=== PATIENT | female | born 1990 | race Caucasian/White ===

== ENCOUNTER 2016-10-16 18:14 | Emergency (ER) | payer MEDICAID, OTHER ==
[2016-10-16] MEDS ORDERED: SULFAMETH/TRIMETH DS 800/160 MG TABLET PO STA (18:57)
--- NOTE | 2016-10-16 18:59 | ED Physician Documentation ---
History of Present Illness - Stated complaint Stated Complaint: RED/HOT AREA ON RT BREAST - Chief complaint Chief Complaint: Wound - History obtained from History obtained from: Patient - History of Present Illness Timing: How many days ago (3) Pain level max: 4 Pain level now: 3 Improved by: nothing Worsened by: nothing - Additonal information Additional information: Patient is a 26-year-old female who presents to the emergency department with a red warm, swollen area to the right breast for the past 2 days. States it drained spontaneously today. Review of Systems Constitutional: denies: Fever, Chills GI: denies: Vomiting : denies: Now EGA Skin: denies: Rash PD PAST MEDICAL HISTORY - Past Medical History Past Medical History: No - Past Surgical History Past Surgical History: No - Present Medications Home Medications: Ambulatory Orders Medication Instructions Recorded Confirmed Control Pills 1 tab PO DAILY 10/16/16 Sulfamethox/Trimeth 800/160 1 each PO BID #14 tablet 10/16/16 [Bactrim Ds 800/160] - Allergies Allergies/Adverse Reactions: Allergies Allergy/AdvReac Type Severity Reaction Status Date / Time acetaminophen [From Vicodin] Allergy Headache Verified 10/16/16 18:20 hydrocodone bitartrate * Allergy Headache Verified 10/16/16 18:20 [From Vicodin] sumatriptan [From Imitrex] Allergy Unknown Verified 10/16/16 18:20 sumatriptan succinate * Allergy Unknown Verified 10/16/16 18:20 [From Imitrex] - Social History Does the pt smoke?: Yes Smoking Status: Current every day smoker Does the pt drink ETOH?: No Does the pt have substance abuse?: No PD ED PE NORMAL - Vitals Vital signs reviewed: Yes - General General: Alert and oriented X 3, No acute distress - Derm Derm: Warm and dry, Other (R breast 2x2cm erythematous area with mild induration , no fluctuance. ) - Neuro Neuro: Alert and oriented X 3 Results - Vitals Vitals: Vital Signs - 24 hr 10/16/16 10/16/16 18:17 19:07 Temperature 36.9 C Heart Rate 67 79 Respiratory 18 16 Rate Blood Pressure 126/78 124/68 O2 Saturation 99 99 Oxygen O2 Source Room air PD MEDICAL DECISION MAKING - ED course Complexity details: considered differential, d/w patient ED course: Patient is a 26-year-old female who presents to the emergency department what appears to be a cellulitis of the right breast, likely was an abscess that drained spontaneously at home. Bedside ultrasound reveals no drainable abscess. Will place on antibiotics for home and follow-up closely with her doctor. Patient counseled regarding signs and symptoms for which I believe and urgent re-evaluation would be necessary. Patient with good understanding of and agreement to plan and is comfortable going home at this time This document was made in part using voice recognition software. While efforts are made to proofread this document, sound alike and grammatical errors may occur. Departure - Departure Disposition: Home, Self Care Clinical Impression: Cellulitis Qualifiers: Site of cellulitis: trunk Site of cellulitis of trunk: chest wall Qualified Code(s): L03.313 - Cellulitis of chest wall Condition: Good Instructions: ED Staph Infec Abx Tx Only Follow-Up: your,doctor in 4 days for wound check [Other] Prescriptions: Sulfamethox/Trimeth 800/160 [Bactrim Ds 800/160] 1 each PO BID #14 tablet Comments: Take all antibiotics until gone. Return if you worsen. Discharge Date/Time: 10/16/16 19:09
[2016-10-16] MEDS ORDERED: SULFAMETH/TRIMETH DS 800/160 MG TABLET PO ONE (19:03)
[2016-10-16 19:09] VITALS: BP 124/68
== END 2016-10-16 19:09 | disposition home or self-care (01) ==
LOC: ED 18:14
DX: N61.0 Mastitis without abscess (principal); F17.200 Nicotine dependence, unspecified, uncomplicated
CPT/HCPCS: 99283; A9270

== ENCOUNTER 2016-11-11 13:57 | Emergency (ER) | payer MEDICAID ==
--- NOTE | 2016-11-11 15:11 | ED Physician Documentation ---
PD HPI SKIN - Stated complaint Stated Complaint: RIGHT LEG ABSCESS - Chief complaint Chief Complaint: Wound - History obtained from History obtained from: Patient - History of Present Illness Timing - duration: Days Timing - details: Gradual onset, Still present Location: RLE Quality / character: Painful, Discolored (red), Raised, Draining Associated symptoms: No: Fever Similar symptoms before: Diagnosis (had similar staph infection breast few weeks ago, cleared with drainage and abx.) Recently seen: Not recently seen Review of Systems Constitutional: denies: Fever, Chills GI: denies: Nausea, Vomiting, Diarrhea PD PAST MEDICAL HISTORY - Past Medical History Past Medical History: Yes - Past Surgical History Past Surgical History: No - Present Medications Home Medications: Ambulatory Orders Medication Instructions Recorded Confirmed Control Pills 1 tab PO DAILY 10/16/16 11/11/16 Chlorhexidine Gluconate [Hibiclens] 10 ml TP DAILY #473 ml 11/11/16 Ibuprofen [Motrin] 600 mg PO TID #30 tab 11/11/16 Mupirocin 1 applic TP TID #15 oint...g. 11/11/16 Sulfamethox/Trimeth 800/160 1 each PO BID #14 tablet 11/11/16 [Bactrim Ds 800/160] - Allergies Allergies/Adverse Reactions: Allergies Allergy/AdvReac Type Severity Reaction Status Date / Time acetaminophen [From Vicodin] Allergy Headache Verified 10/16/16 18:20 hydrocodone bitartrate * Allergy Headache Verified 10/16/16 18:20 [From Vicodin] sumatriptan [From Imitrex] Allergy Unknown Verified 10/16/16 18:20 sumatriptan succinate * Allergy Unknown Verified 10/16/16 18:20 [From Imitrex] - Social History Does the pt smoke?: Yes Smoking Status: Current every day smoker Does the pt drink ETOH?: No Does the pt have substance abuse?: No PD ED PE NORMAL - Vitals Vital signs reviewed: Yes - General General: Alert and oriented X 3, Well developed/nourished - Neck Neck: Supple, no meningeal sign, No adenopathy - Derm Derm: Normal color, Warm and dry - Extremities Extremities: Other (right posterolateral calf with skin abscess without flucutnace, mild drainage. Bedside U/S showing no fluid collection. some surrounding redness. ) - Neuro Neuro: No motor deficit, No sensory deficit Results - Vitals Vitals: Oxygen O2 Source Room air PD MEDICAL DECISION MAKING - ED course Complexity details: reviewed old records, considered differential (has staph looking abscess lower leg; had had one recent on breast.), d/w patient Departure - Departure Disposition: 01 Home, Self Care Clinical Impression: Abscess Condition: Stable Record reviewed to determine appropriate education?: Yes Instructions: ED Staph Infec Abx Tx Only Follow-Up: [facility] [Provider Group] [facility] [Provider Group] Prescriptions: Chlorhexidine Gluconate [Hibiclens] 10 ml TP DAILY #473 ml Ibuprofen [Motrin] 600 mg PO TID #30 tab Mupirocin 1 applic TP TID #15 oint...g. Sulfamethox/Trimeth 800/160 [Bactrim Ds 800/160] 1 each PO BID #14 tablet Comments: Warm moist towels to the leg infection 2-3 times a day and apply antibiotic ointment. Also you use the antibiotic ointment small amount on the nailbeds and nostrils twice daily for the next week. Bactrim twice daily oral antibiotic for a week for the skin infection. Cleanse the whole body with chlorhexidine antiseptic wash with your showers daily for the next week or so as well. Ibuprofen 3 times a day for pain. Recheck if not improving over the next couple of days. Discharge Date/Time: 11/11/16 15:42
[2016-11-11] MEDS ORDERED: SULFAMETH/TRIMETH DS 800/160 MG TABLET PO STA (15:26)
[2016-11-11] MEDS ORDERED: IBUPROFEN 800 MG TABLET PO STA (15:26)
[2016-11-11] MEDS ORDERED: IBUPROFEN 800 MG TABLET PO ONE (15:34)
[2016-11-11] MEDS ORDERED: SULFAMETH/TRIMETH DS 800/160 MG TABLET PO ONE (15:34)
[2016-11-11 15:44] VITALS: BP 134/62
== END 2016-11-11 15:42 | disposition home or self-care (01) ==
LOC: ED 13:57
DX: L02.415 Cutaneous abscess of right lower limb (principal); F17.200 Nicotine dependence, unspecified, uncomplicated
CPT/HCPCS: 99283; A9270

== ENCOUNTER 2017-08-26 20:09 | Emergency (ER) | payer MEDICAID ==
[2017-08-26 20:14] VITALS: BP 134/80
[2017-08-26] MEDS ORDERED: NEOMYCIN/POLYMYX/HC OTIC DROPS LEFTEAR STA (20:22)
--- NOTE | 2017-08-26 20:24 | ED Physician Documentation ---
PD HPI URI - Stated complaint Stated Complaint: LT EAR PX - Chief complaint Chief Complaint: Heent - History obtained from History obtained from: Patient - History of Present Illness Timing - onset: Yesterday (Left earache since yesterday without URI symptoms or hearing deficit. No drainage. She takes ibuprofen which does help.) Review of Systems Constitutional: denies: Fever, Chills Nose: denies: Rhinorrhea / runny nose, Congestion Throat: denies: Sore throat PD PAST MEDICAL HISTORY - Past Surgical History Past Surgical History: No - Present Medications Home Medications: Ambulatory Orders Medication Instructions Recorded Confirmed Control Pills 1 tab PO DAILY 10/16/16 08/26/17 Neomycin/Polymyx/Hc Otic Drops 4 drops OT TID #1 bottle 08/26/17 [Cortisporin Ear Susp] - Allergies Allergies/Adverse Reactions: Allergies Allergy/AdvReac Type Severity Reaction Status Date / Time acetaminophen [From Vicodin] Allergy Headache Verified 08/26/17 20:15 hydrocodone bitartrate * Allergy Headache Verified 08/26/17 20:15 [From Vicodin] sumatriptan [From Imitrex] Allergy Unknown Verified 08/26/17 20:15 sumatriptan succinate * Allergy Unknown Verified 08/26/17 20:15 [From Imitrex] - Social History Does the pt smoke?: Yes Smoking Status: Current every day smoker Does the pt drink ETOH?: No Does the pt have substance abuse?: No PD ED PE NORMAL - Vitals Vital signs reviewed: Yes - General General: Alert and oriented X 3, No acute distress - HEENT HEENT: Other (TMs are normal bilaterally, she does have redness of the anterior canal on the left with tenderness there but no swelling per se. Her teeth look normal and she has no TMJ tenderness or clicking.) - Neck Neck: Supple, no meningeal sign, No bony TTP - Neuro Neuro: Alert and oriented X 3, Normal speech Results - Vitals Vitals: Vital Signs - 24 hr 08/26/17 20:12 Temperature 36.8 C Heart Rate 84 Respiratory 18 Rate Blood Pressure 134/80 H O2 Saturation 100 Oxygen O2 Source Room air PD MEDICAL DECISION MAKING - Sepsis Event Vital Signs: Vital Signs - 24 hr 08/26/17 20:12 Temperature 36.8 C Heart Rate 84 Respiratory 18 Rate Blood Pressure 134/80 H O2 Saturation 100 Oxygen O2 Source Room air Departure - Departure Disposition: Home, Self Care Clinical Impression: External otitis of left ear Qualifiers: Otitis externa type: other infective Chronicity: acute Qualified Code(s): H60.392 - Other infective otitis externa, left ear Condition: Good Record reviewed to determine appropriate education?: Yes Instructions: ED Otitis Externa Prescriptions: Neomycin/Polymyx/Hc Otic Drops [Cortisporin Ear Susp] 4 drops OT TID #1 bottle Comments: Call your doctor to arrange a follow-up appointment, make the next available appointment. In the interim, return anytime if worse or if new symptoms develop. Your blood pressure was elevated today on check into the emergency department. This does not mean that you have hypertension, it is a common phenomenon to come to the emergency department and have elevated blood pressure. I recommend that you see your primary care physician within the week to have it rechecked when you are feeling better.
== END 2017-08-26 20:28 | disposition home or self-care (01) ==
LOC: ED 20:09
DX: H60.392 Other infective otitis externa, left ear (principal)
CPT/HCPCS: 99283; A9270

== ENCOUNTER 2018-07-29 07:19 | Outpatient (CLI) | payer OTHER ==
[2018-07-29 07:45] LABS: BASOPHILS % (AUTO) 0.6 %; EOSINOPHILS # (AUTO) 0.2 10^3/uL (0.0-0.7); EOSINOPHILS % (AUTO) 2.2 %; HGB - HEMOGLOBIN 13.3 g/dL (12.0-16.0); LYMPHOCYTES % (AUTO) 29.2 %; MEAN CORPUSCULAR HEMOGLOBIN 31.2 pg (27.0-31.0); MEAN CORPUSCULAR HGB CONC 35.4 g/dL (32.0-36.0); MEAN CORPUSCULAR VOLUME 88.1 fL (81.0-99.0); MEAN PLATELET VOLUME 7.1 fL (7.9-10.8); MONOCYTES # (AUTO) 0.5 10^3/uL (0.0-1.0); MONOCYTES % (AUTO) 7.7 %; NEUTROPHILS # (AUTO) 4.1 10^3/uL (1.5-6.6); NEUTROPHILS % (AUTO) 60.3 %; PLT - PLATELET COUNT 340 10^3/uL (130-450); RED BLOOD COUNT 4.25 10^6/uL (4.20-5.40); RED CELL DISTRIBUTION WIDTH 13.3 % (12.0-15.0); WHITE BLOOD COUNT 6.9 x10^3/uL (4.8-10.8)
[2018-07-29 07:58] LABS: ALBUMIN 4.2 g/dL (3.2-5.5); ALBUMIN/GLOBULIN RATIO 1.1 (1.0-2.2); ALKALINE PHOSPHATASE 57 IU/L (42-121); ALT ALANINE AMINOTRANSFERASE 32 IU/L (10-60); AST ASPARTATE AMINOTRANSFERASE 26 IU/L (10-42); BUN - BLOOD UREA NITROGEN 15 mg/dL (6-20); CALCIUM 9.2 mg/dL (8.5-10.3); CARBON DIOXIDE - CO2 24 mmol/L (21-32); CHLORIDE 103 mmol/L (101-111); CHOL/HDL RATIO 3.2 (<4.4); CHOLESTEROL 167 mg/dL; CREATININE 0.8 mg/dL (0.4-1.0); GFR - MDRD 86 (>89); GLUCOSE 94 mg/dL (70-100); HDL CHOLESTEROL 53 mg/dL; LDL CHOLESTEROL,CALCULATED 101 mg/dL; LDL/HDL RATIO 1.9 (<4.4); SODIUM 138 mmol/L (135-145); VLDL CHOLESTEROL 13 mg/dL
[2018-07-29 08:00] LABS: HB2 TOTAL 13.8 g/dL; HEMOGLOBIN A1C 0.45 g/dL; HEMOGLOBIN A1C % 5.1 % (4.6-6.2)
== END 2018-07-29 07:20 | disposition home or self-care (01) ==
LOC: LAB 07:19
PROVIDERS: ATTEND Physician Assistant
DX: Z00.00 Encounter for general adult medical examination without abnormal findings (principal); Z83.3 Family history of diabetes mellitus
CPT/HCPCS: 36415; 80053; 80061; 83036; 83721; 84443; 85025

== ENCOUNTER 2018-08-03 09:40 | Outpatient (CLI) | payer OTHER ==
--- NOTE | 2018-08-03 13:24 | XRAY Report ---
Reason: RIGHT HAND PAIN Procedure Date: 08/03/2018 Accession Number: [id number] / [id number] Procedure: WCP - Hand 3 View RT CPT Code: FULL RESULT: EXAM: RIGHT HAND RADIOGRAPHY EXAM DATE: 08/03/2018 09:56 AM. CLINICAL HISTORY: Right hand pain. COMPARISON: None. TECHNIQUE: 3 views. FINDINGS: Bones: There is a metadiaphyseal fracture of the base of the fifth metacarpal with approximately 2 mm of foreshortening and 2 mm of volar displacement of the fragment. Joints: Normal. No subluxations. Soft Tissues: Soft tissue swelling is noted. IMPRESSION: Boxer's fracture. RADIA The call report notification system was initiated by Dr. Chuck Dent at 01:11 PM on 08/03/2018. The above call report findings were discussed with KOFI Puentes by Dr. Chuck Dent at 01:23 PM on 08/03/2018.
== END 2018-08-03 09:41 | disposition home or self-care (01) ==
LOC: DI.WCP 09:40
PROVIDERS: ATTEND Family Medicine
DX: S62.316A Displaced fracture of base of fifth metacarpal bone, right hand, initial encounter for closed fracture (principal)

== ENCOUNTER 2021-04-18 07:27 | Outpatient (CLI) | payer OTHER ==
[2021-04-18 07:39] LABS: BASOPHILS # (AUTO) 0.1 10^3/uL (0.0-0.1); BASOPHILS % (AUTO) 0.7 %; EOSINOPHILS # (AUTO) 0.1 10^3/uL (0.0-0.7); EOSINOPHILS % (AUTO) 1.6 %; HCT - HEMATOCRIT 39.3 % (37.0-47.0); HGB - HEMOGLOBIN 13.9 g/dL (12.0-16.0); LYMPHOCYTES # (AUTO) 2.2 10^3/uL (1.5-3.5); LYMPHOCYTES % (AUTO) 31.7 %; MEAN CORPUSCULAR HEMOGLOBIN 31.7 pg (27.0-31.0); MEAN CORPUSCULAR HGB CONC 35.4 g/dL (32.0-36.0); MEAN CORPUSCULAR VOLUME 89.5 fL (81.0-99.0); MEAN PLATELET VOLUME 8.9 fL (7.9-10.8); MONOCYTES # (AUTO) 0.6 10^3/uL (0.0-1.0); MONOCYTES % (AUTO) 8.5 %; NEUTROPHILS % (AUTO) 57.4 %; PLT - PLATELET COUNT 352 10^3/uL (130-450); RED BLOOD COUNT 4.39 10^6/uL (4.20-5.40); RED CELL DISTRIBUTION WIDTH 12.6 % (12.0-15.0); WHITE BLOOD COUNT 6.9 x10^3/uL (4.8-10.8)
[2021-04-18 07:59] LABS: ALBUMIN 4.5 g/dL (3.2-5.5); ALBUMIN/GLOBULIN RATIO 1.3 (1.0-2.2); ALKALINE PHOSPHATASE 56 IU/L (42-121); ALT ALANINE AMINOTRANSFERASE 27 IU/L (10-60); AST ASPARTATE AMINOTRANSFERASE 24 IU/L (10-42); BILIRUBIN,TOTAL 1.3 mg/dL (0.2-1.0); BUN - BLOOD UREA NITROGEN 12 mg/dL (6-20); CALCIUM 9.1 mg/dL (8.5-10.3); CARBON DIOXIDE - CO2 25 mmol/L (21-32); CHLORIDE 103 mmol/L (101-111); CREATININE 0.6 mg/dL (0.4-1.0); GFR - MDRD 118 (>89); GLUCOSE 93 mg/dL (70-100); POTASSIUM 3.7 mmol/L (3.5-5.0); SODIUM 137 mmol/L (135-145); TOTAL PROTEIN 7.9 g/dL (6.7-8.2)
[2021-04-18 08:11] LABS: THYROID STIMULATING HORMONE 3.27 uIU/mL (0.34-5.60)
[2021-04-18 08:13] LABS: FREE T3 2.99 pg/mL (2.5-3.9); FREE T4 (FREE THYROXINE) 0.79 ng/dL (0.58-1.64)
[2021-04-18 09:09] LABS: CRP - C-REACTIVE PROTEIN < 1.0 mg/dL (0-1.0)
[2021-04-21 15:46] LABS: THYROID PEROXIDASE ANTIBODIES 180 IU/mL (<9)
== END 2021-04-18 23:59 | disposition home or self-care (01) ==
LOC: LAB 07:27
PROVIDERS: ATTEND Naturopath
DX: E06.3 Autoimmune thyroiditis (principal); R79.82 Elevated C-reactive protein (CRP); R73.09 Other abnormal glucose
CPT/HCPCS: 36415; 80053; 84439; 84443; 84481; 85025; 86140; 86376; 86800

== ENCOUNTER 2021-12-22 13:15 | Outpatient (CLI) | payer OTHER ==
[2021-12-23 12:23] LABS: BILIRUBIN,URINE NEGATIVE (NEGATIVE); GLUCOSE, URINE (UA) NEGATIVE (NEGATIVE); KETONES,URINE (UA) TRACE mg/dL (NEGATIVE); LEUKOCYTE ESTERASE, URINE NEGATIVE (NEGATIVE); NITRITE,URINE NEGATIVE (NEGATIVE); OCCULT BLOOD,URINE SMALL (NEGATIVE); PROTEIN,URINE NEGATIVE (NEGATIVE); UROBILINOGEN,URINE 0.2 (NORMAL) E.U./dL (NORMAL)
[2021-12-23 12:29] LABS: AMORPHOUS SEDIMENT,UR Marked /LPF; BACTERIA,URINE Few /HPF (None Seen); CLARITY,URINE CLOUDY (CLEAR); RBC,URINE 0-5 /HPF (0-5); SQUAMOUS EPITHELIAL CELL,UR FEW Squamous (<= Few); WBC,URINE 0-3 /HPF (0-5)
== END 2021-12-22 23:59 | disposition home or self-care (01) ==
LOC: LAB.WC 13:15
PROVIDERS: ATTEND Obstetrics & Gynecology
DX: Z34.90 Encounter for supervision of normal pregnancy, unspecified, unspecified trimester (principal)
CPT/HCPCS: 81001; 87086; 87181

== ENCOUNTER 2021-12-26 09:02 | Outpatient (CLI) | payer OTHER ==
[2021-12-26 09:43] LABS: BASOPHILS % (AUTO) 0.4 %; EOSINOPHILS # (AUTO) 0.1 10^3/uL (0.0-0.7); EOSINOPHILS % (AUTO) 1.7 %; HCT - HEMATOCRIT 36.5 % (37.0-47.0); HGB - HEMOGLOBIN 12.5 g/dL (12.0-16.0); LYMPHOCYTES # (AUTO) 1.8 10^3/uL (1.5-3.5); LYMPHOCYTES % (AUTO) 24.1 %; MEAN CORPUSCULAR HEMOGLOBIN 30.3 pg (27.0-31.0); MEAN CORPUSCULAR HGB CONC 34.2 g/dL (32.0-36.0); MEAN CORPUSCULAR VOLUME 88.6 fL (81.0-99.0); MEAN PLATELET VOLUME 9.2 fL (7.9-10.8); MONOCYTES # (AUTO) 0.7 10^3/uL (0.0-1.0); MONOCYTES % (AUTO) 8.7 %; PLT - PLATELET COUNT 361 10^3/uL (130-450); RED BLOOD COUNT 4.12 10^6/uL (4.20-5.40); RED CELL DISTRIBUTION WIDTH 12.6 % (12.0-15.0); WHITE BLOOD COUNT 7.6 x10^3/uL (4.8-10.8)
[2021-12-26 09:54] LABS: BILIRUBIN,URINE NEGATIVE (NEGATIVE); GLUCOSE, URINE (UA) NEGATIVE (NEGATIVE); KETONES,URINE (UA) NEGATIVE (NEGATIVE); LEUKOCYTE ESTERASE, URINE MODERATE (NEGATIVE); NITRITE,URINE NEGATIVE (NEGATIVE); OCCULT BLOOD,URINE TRACE-INTA (NEGATIVE); PH,URINE 5.5 PH (5.0-7.5); PROTEIN,URINE NEGATIVE (NEGATIVE); UROBILINOGEN,URINE 0.2 (NORMAL) E.U./dL (NORMAL)
[2021-12-26 10:03] LABS: BACTERIA,URINE Moderate /HPF (None Seen); CLARITY,URINE HAZY (CLEAR); RBC,URINE 0-5 /HPF (0-5); SQUAMOUS EPITHELIAL CELL,UR MANY Squamous (<= Few)
[2021-12-27 08:08] LABS: HIV SCREEN 4TH GENERATION Non Reactive (Non Reactive)
[2021-12-27 10:08] LABS: HBsAG SCREEN Negative (Negative); HCV AB <0.1 s/co ratio (0.0-0.9)
[2021-12-27 15:08] LABS: VARICELLA-ZOSTER AB IGG 700 index (Immune >165)
[2021-12-29 03:08] LABS: RPR Non Reactive (Non Reactive)
== END 2021-12-26 09:03 | disposition home or self-care (01) ==
LOC: LAB 09:02
PROVIDERS: ATTEND Obstetrics & Gynecology
DX: Z34.90 Encounter for supervision of normal pregnancy, unspecified, unspecified trimester (principal)
CPT/HCPCS: 36415; 81001; 85025; 86592; 86762; 86787; 86803; 86850; 86900; 86901; 87086; 87340; 87389

== ENCOUNTER 2022-01-05 14:22 | Outpatient (CLI) | payer OTHER ==
--- NOTE | 2022-01-06 05:50 | Ultrasound Report ---
PROCEDURE: OB First Trimester INDICATIONS: POSITIVE TEST OUTSIDE/PRIOR DATING DATA: Last menstrual period (LMP): 10/18/2021. LMP-based estimated date of delivery (CHRIS): 07/25/2022. First dating scan (date and location): 01/05/2022. Estimated date of delivery (CHRIS) from first dating scan: 07/30/2022. The below data below was generated using the ultrasound CHRIS of 07/30/2022 TECHNIQUE: Real-time scanning was performed of the fetus and maternal pelvic organs, with image documentation. COMPARISON: None FINDINGS: First trimester living intrauterine with crown-rump length and heartbeat. Subcho rionic hemorrhage measuring 3.7 x 1.0 x 3.5 mm Embryo: [place]-rump length measures 3.65 cm, 10 weeks 4 days Heart rate: 160 bpm Measurement variability in dating: +/- 4 weeks by LMP, +/- 7 days by mean sac diameter (use before 6 weeks gestation if crown-rump length not able to be measured), +/- 5 days by crown-rump length (6-12 weeks gestation). Maternal organs: Ovaries within normal limits. Left corpus luteum measuring 2.1 x 1.5 x 1.7 cm. IMPRESSION: 1. Living first trimester intrauterine with crown-rump length and heartbeat measuring 10 we eks 4 days. 2. Subchorionic hemorrhage. Reviewed by: Deric Guan MD on 01/06/2022 5:48 AM PST Approved by: Deric Guan MD on 01/06/2022 5:48 AM PST Station ID: [id number]
== END 2022-01-05 14:23 | disposition home or self-care (01) ==
LOC: DI 14:22
PROVIDERS: ATTEND Obstetrics & Gynecology
DX: O20.9 Hemorrhage in early pregnancy, unspecified (principal); Z3A.10 10 weeks gestation of pregnancy

== ENCOUNTER 2022-02-11 08:00 | Outpatient (CLI) | payer OTHER ==
[2022-02-12 00:09] LABS: CHLAMYDIA TRACHOMATIS DNA NEGATIVE (NEGATIVE); NEISSERIA GONORRHOEAE DNA NEGATIVE (NEGATIVE); TRICHOMONAS VAGINALIS DNA NEGATIVE (NEGATIVE)
== END 2022-02-11 23:59 | disposition home or self-care (01) ==
LOC: LAB.WC 08:00
PROVIDERS: ATTEND Obstetrics & Gynecology
DX: Z34.90 Encounter for supervision of normal pregnancy, unspecified, unspecified trimester (principal)
CPT/HCPCS: 87086; 87491; 87591; 87661

== ENCOUNTER 2022-02-14 13:33 | Outpatient (CLI) | payer OTHER ==
[2022-02-16 19:07] LABS: AFP MOM 0.41 (.); AFP VALUE 16.1 ng/mL (.); DIA MOM 0.79 (.); DIA VALUE 120.66 pg/mL (.); DSR (BY AGE) 1 IN 613 (.); DSR (SECOND TRIMESTER) 1 IN 10000 (.); HCG MOM 0.54 (.); HCG VALUE 18852 mIU/mL (.); INSULIN DEP DIABETES No (.); MULTIPLE GESTATION No (.); OPEN SPINA BIFIDA RISK 1 IN 10000 (.); RACE Caucasian (.); RESULTS Report (.); TEST RESULTS *Screen Negative* (.); TRISOMY 18 RISK Not increased (.); UE3 MOM 0.75 (.); UE3 VALUE 0.89 ng/mL (.); WEIGHT 155 lbs (.)
== END 2022-02-14 13:34 | disposition home or self-care (01) ==
LOC: LAB 13:33
PROVIDERS: ATTEND Obstetrics & Gynecology
DX: O99.281 Endocrine, nutritional and metabolic diseases complicating pregnancy, first trimester (principal); E07.9 Disorder of thyroid, unspecified
CPT/HCPCS: 36415; 81511; 84443

== ENCOUNTER 2022-03-25 15:08 | Outpatient (CLI) | payer OTHER ==
--- NOTE | 2022-03-26 19:41 | Ultrasound Report ---
PROCEDURE: OB Detailed Eval INDICATIONS: SUPERVISION NORMAL OUTSIDE/PRIOR DATING DATA: Last menstrual period (LMP): 10/18/2021. LMP-based estimated date of delivery (CHRIS): 07/25/2022. First dating scan (date and location): 01/05/2022. Estimated date of delivery (CHRIS) from first dating scan: 07/30/2022. The below data below was generated using the ultrasound CHRIS of 07/30/2022. TECHNIQUE: Real-time scanning was performed of the fetus, with image documentation and biometric measurements. COMPARISON: OB ultrasound 01/05/2022. FINDINGS: General: A single living intrauterine gestation is present. Presentation: Vertex Placenta: Placental position is anterior fundal, without previa. Amniotic fluid index: 13.2 cm, normal for gestational age. Largest pocket 4.1 cm. heart rate: 145 beats per minute. Maternal cervical canal: 4.6 cm long; normal length is 2.5 cm or more. biometrics: Biparietal diameter: 5.14 cm, 21 weeks 4 days Head circumference: 19.28 cm, 21 weeks 4 days Abdominal circumference: 17.68 cm, 22 weeks 4 days Femur length: 3.64 cm, 21 weeks 4 days Estimated gestational age from initial scan: 21 weeks 6 days Composite gestational age from present scan: 21 weeks 5 days Estimated weight and percentile: 471 g, 54th percentile. Measurement variability in biometric dating: +/- 10 days from 12-20 weeks gestation, +/- 2 weeks from 20-30 weeks gestation, +/- 3 weeks at 30 weeks gestation or later. Anatomic survey: Gender is not well seen. Neuro: Ventricles are normal at less than 10 mm. Cisterna magna is normal at 3-11 mm. Cerebellum i s normal in size and morphology. Nuchal skin fold: Normal at less than 6 mm between 14 and 20 weeks gestational age. Face: Nose and lips, facial profile are normal. Spine: No evidence for spina bifida. Heart: 4-chambered heart is present, with normal ventricular outflow tracts. Diaphragm: Diaphragm is intact. Stomach: Left-sided stomach is present. Kidneys: No hydronephrosis. Normal is less than 5 mm in 2nd trimester, less than 7 mm in 3rd trimester. Cord: 3 vessel cord has orthotopic insertion. Bladder: Normal in size. Extremities: All 4 extremities are visualized. IMPRESSION: 1. Shah living intrauterine at 21 weeks 5 days based on today's ultrasound. There is e xpected interval growth. Fetus is in the 54th percentile for weight. 2. Normal placenta and amniotic fluid. 3. Normal and complete anatomic survey. Reviewed by: Navin Rodriguez MD on 03/26/2022 7:39 PM PST Approved by: Navin Rodriguez MD on 03/26/2022 7:39 PM PST Station ID: [id number]
== END 2022-03-25 15:09 | disposition home or self-care (01) ==
LOC: DI 15:08
PROVIDERS: ATTEND Obstetrics & Gynecology
DX: Z34.92 Encounter for supervision of normal pregnancy, unspecified, second trimester (principal); Z3A.21 21 weeks gestation of pregnancy; Z36.89 Encounter for other specified antenatal screening

== ENCOUNTER 2022-04-20 04:31 | Outpatient (CLI) | payer OTHER ==
[2022-04-20 04:55] VITALS: BP 127/67
--- NOTE | 2022-04-20 06:00 | PROVIDER PROGRESS NOTE ---
- HPI Chief Complaint: Decreased movement Current : Vital Signs Temperature 97.7 F 04/20/22 04:50 Heart Rate 66 04/20/22 04:50 Respiratory Rate 16 04/20/22 04:50 Blood Pressure 127/67 04/20/22 04:50 Temperature 97.7 F 04/20/22 04:50 Heart Rate 66 04/20/22 04:50 Respiratory Rate 16 04/20/22 04:50 Blood Pressure 127/67 04/20/22 04:50 O2 Saturation If not protocol: Oxygen Flow, liters/minute - Procedures OB Procedure Performed: NST NST Procedure: Start time 0452 to 0548 EFM: 140s, moderate variability, no decelerations [place]: no contractions Cat 1 tracing Early gestational age for NST but monitoring reassuring Performed and read 04/20/22 Service Date of procedure: 04/20/22 - Plan Plan: 31yo at 26.2w presenting to [facility] for decreased movement. She has not felt baby move as much the past day and early this morning when she woke up. Denies contractions, no leaking fluid or bleeding. care at [facility] and care complicated by BMI 40, [place]imot[place], history substance use. VSS GEN: Initially anxious and crying, now reassured and NAD CV: Regular rate Resp: Breathing unlabored Abd: nt Ext: no edema monitoring reassuring 31yo at 26.2w with decreased movement in second trimester - monitoring reassuring, patient reassured - Discharge to home, follow up as scheduled
== END 2022-04-20 06:05 | disposition home or self-care (01) ==
LOC: WFO 04:31 → FBP 04:36 → WFO 06:05
PROVIDERS: ATTEND Obstetrics & Gynecology
DX: O36.8120 Decreased fetal movements, second trimester, not applicable or unspecified (principal); Z3A.26 26 weeks gestation of pregnancy
CPT/HCPCS: 99212; 99215

== ENCOUNTER 2022-04-30 08:05 | Outpatient (CLI) | payer OTHER ==
[2022-04-30 09:20] LABS: HCT - HEMATOCRIT 35.1 % (37.0-47.0); HGB - HEMOGLOBIN 12.1 g/dL (12.0-16.0); MEAN CORPUSCULAR HGB CONC 34.5 g/dL (32.0-36.0); MEAN PLATELET VOLUME 9.1 fL (7.9-10.8); RED BLOOD COUNT 3.9 10^6/uL (4.20-5.40); RED CELL DISTRIBUTION WIDTH 13.3 % (12.0-15.0); WHITE BLOOD COUNT 8.6 x10^3/uL (4.8-10.8)
== END 2022-04-30 08:06 | disposition home or self-care (01) ==
LOC: LAB 08:05
PROVIDERS: ATTEND Obstetrics & Gynecology
DX: Z34.90 Encounter for supervision of normal pregnancy, unspecified, unspecified trimester (principal)
CPT/HCPCS: 36415; 82950; 85027; 86850

== ENCOUNTER 2022-06-09 11:47 | Outpatient (CLI) | payer OTHER ==
--- NOTE | 2022-06-09 16:50 | Ultrasound Report ---
PROCEDURE: OB F/U or Repeat INDICATIONS: OBESITY COMPLICATING OUTSIDE/PRIOR DATING DATA: Last menstrual period (LMP): 10/18/2021. LMP-based estimated date of delivery (CHRIS): 07/25/2022. First dating scan (date and location): 01/05/2022. Estimated date of delivery (CHRIS) from first dating scan: 07/30/2022. The below data below was generated using the working CHRIS of 07/30/2022 TECHNIQUE: Real-time scanning was performed of the fetus, with image documentation and biometric measurements. Endovaginal scanning: None COMPARISON: None. FINDINGS: General: A single living intrauterine gestation is present. Presentation: Vertex Placenta: Placental position is anterior, without previa. Amniotic fluid index: 10.2 cm, 8 percentile for gestational age. heart rate: 147 beats per minute. Maternal cervical canal: 5.3 cm long; normal length is 2.5 cm or more. biometrics: Biparietal diameter: 8.1 cm, 32 week 4 day Head circumference: 29.4 cm, 32 week 3 day Abdominal circumference: 20.6 cm, 32 week 4 day Femur length: 6.0 cm, 31 week 2 day Estimated gestational age from initial scan: 32 week 5 day Composite gestational age from present scan: 32 week 2 day Estimated weight and percentile: 1919 g, 25th percentile Measurement variability in biometric dating: +/- 10 days from 12-20 weeks gestation, +/- 2 weeks from 20-30 weeks gestation, +/- 3 weeks at 30 weeks gestation or more. Other: Visualized anatomy was unremarkable IMPRESSION: Single live intrauterine consistent with 32 week 2 day gestation by current ultrasound Reviewed by: Willian Mujica MD on 06/09/2022 3:49 PM SVITLANA Approved by: Willian Mujica MD on 06/09/2022 3:49 PM AKFLORIDALMA Station ID: [id number]
== END 2022-06-09 11:48 | disposition home or self-care (01) ==
LOC: DI 11:47
PROVIDERS: ATTEND Obstetrics & Gynecology
DX: O99.213 Obesity complicating pregnancy, third trimester (principal); O99.283 Endocrine, nutritional and metabolic diseases complicating pregnancy, third trimester; E07.9 Disorder of thyroid, unspecified; Z3A.32 32 weeks gestation of pregnancy

== ENCOUNTER 2022-06-30 08:00 | Outpatient (CLI) | payer OTHER | END 2022-06-30 23:59 | disposition home or self-care (01) | LOC: LAB 08:00 | PROVIDERS: ATTEND Nurse Practitioner | DX: Z36.85 Encounter for antenatal screening for Streptococcus B (principal) | CPT/HCPCS: 87797 ==

== ENCOUNTER 2022-07-19 19:54 | Outpatient (CLI) | payer OTHER ==
--- NOTE | 2022-07-20 13:15 | Ultrasound Report ---
PROCEDURE: OB F/U or Repeat INDICATIONS: UTERINE SIZE-DATE DISCREPANCY OUTSIDE/PRIOR DATING DATA: Last menstrual period (LMP): 10/18/2021. LMP-based estimated date of delivery (CHRIS): 07/25/2022. First dating scan (date and location): 07/19/2022. Estimated date of delivery (CHRIS) from first dating scan: 07/30/2022. The below data below was generated using the working CHRIS of 07/30/2022 TECHNIQUE: Real-time scanning was performed of the fetus, with image documentation and biometric measurements. Endovaginal scanning: Not indicated COMPARISON: None. FINDINGS: General: A single living intrauterine gestation is present. Presentation: Vertex Placenta: Placental position is posterior, without previa. Amniotic fluid index: 10.3 cm, 22% for gestational age. heart rate: 137 beats per minute. Maternal cervical canal: 4.5 cm long; normal length is 2.5 cm or more. biometrics: Biparietal diameter: 8.8 cm, 35 weeks, 5 days. Head circumference: 31.6 cm, 35 weeks, 4 days. Abdominal circumference: 33.6 cm, 37 weeks, 4 days. Femur length: 7.1 cm, 36 weeks, 2 days. Estimated gestational age from initial scan: 38 weeks, 3 days Composite gestational age from present scan: 36 weeks, 2 days Estimated weight and percentile: 3033 g, 25%. Measurement variability in biometric dating: +/- 10 days from 12-20 weeks gestation, +/- 2 weeks from 20-30 weeks gestation, +/- 3 weeks at 30 weeks gestation or more. Other: chest, stomach, bilateral kidneys, /placental cord insertion and urinary bladder ar e visualized and are within normal limits. IMPRESSION: 1. Single live intrauterine gestation with fetus in vertex presentation. heart rate is 137 bpm. Normal amount of amniotic fluid. 2. Estimated weight is at 25%. Reviewed by: Bernard Jack MD on 07/20/2022 1:14 PM PDT Approved by: Bernard Jack MD on 07/20/2022 1:14 PM PDT Station ID: [id number]
== END 2022-07-19 19:55 | disposition home or self-care (01) ==
LOC: DI 19:54
PROVIDERS: ATTEND Obstetrics & Gynecology
DX: O26.843 Uterine size-date discrepancy, third trimester (principal); Z3A.36 36 weeks gestation of pregnancy

== ENCOUNTER 2022-07-21 16:31 | Outpatient (CLI) | payer OTHER ==
[2022-07-21 16:45] VITALS: BP 136/81
--- NOTE | 2022-07-21 17:44 | PROVIDER PROGRESS NOTE ---
- HPI Current : Vital Signs Temperature 98.2 F 07/21/22 16:41 Heart Rate 78 07/21/22 16:41 Respiratory Rate 17 07/21/22 16:41 Blood Pressure 136/81 H 07/21/22 16:41 O2 Saturation 100 07/21/22 16:41 Temperature 98.2 F 07/21/22 16:41 Heart Rate 78 07/21/22 16:41 Respiratory Rate 17 07/21/22 16:41 Blood Pressure 136/81 H 07/21/22 16:41 O2 Saturation 100 07/21/22 16:41 If not protocol: Oxygen Flow, liters/minute - Procedures OB Procedure Performed: NST Diagnosis/Indication for NST: Other (Abnormality of heart rate) Service Date of procedure: 07/21/22 (07/21/2022) - Plan Plan: Patient is a 32-year-old at 39 weeks gestation who was seen in clinic with questionable heart rate in clinic. Here she is doing well without complaints. Good movement, no leaking or bleeding. Does desire membrane sweep as they planned this in clinic today but delayed due to the difficult heart rate. Physical Exam Constitutional: alert, no acute distress, well hydrated, well developed, well nourished, appropriate dress. Cardiovascular: Regular rate and rhythm. Respiratory: no respiratory distress. Abdomen: nondistended, nontender, no guarding. Psych: affect and mood appropriate, normal interaction, good eye contact. NST Performed 07/21/2022 NST Read 07/21/2022 FHT: 125 bpm baseline, moderate variability, accelerations present, no d ecelerations. Reactive NST [place]: Quiescent Diagnosis Abnormality of the heart rate and rhythm: No noticeable change on labor and delivery. This, if present, has resolved. Reactive NST. 39 weeks gestation Discussed risk and benefits of membrane sweep's and this was performed in triage. Induction of labor scheduled for next week if she does not go into labor.
== END 2022-07-21 17:30 | disposition home or self-care (01) ==
LOC: WFO 16:31 → FBP 16:33 → WFO 17:30
PROVIDERS: ATTEND Obstetrics & Gynecology
DX: O36.8330 Maternal care for abnormalities of the fetal heart rate or rhythm, third trimester, not applicable or unspecified (principal); Z3A.39 39 weeks gestation of pregnancy
CPT/HCPCS: 59025; 99214; 99215

== ENCOUNTER 2022-07-24 15:51 | Inpatient (IN) | payer OTHER ==
[2022-07-24] MEDS ORDERED: ACETAMINOPHEN 500 MG TABLET PO PRN (15:59)
[2022-07-24] MEDS ORDERED: miSOPROStoL 200 MCG TABLET PR PRN (15:59)
[2022-07-24] MEDS ORDERED: OXYTOCIN/SODIUM CHLORIDE 500 ML IV PRN (15:59)
[2022-07-24] MEDS ORDERED: miSOPROStoL 200 MCG TABLET BC PRN (15:59)
[2022-07-24] MEDS ORDERED: METHYLERGONOVINE 0.2 MG/ML VIAL IM PRN (15:59)
[2022-07-24] MEDS ORDERED: fentaNYL 100 MCG/2 ML VIAL IVP PRN (15:59)
[2022-07-24] MEDS ORDERED: CARBOPROST TROMETHAMINE 250 MCG/ML AMP IM PRN (15:59)
[2022-07-24] MEDS ORDERED: TRANEXAMIC ACID IN NACL 1,000 MG/100 ML BAG IV PRN (15:59)
[2022-07-24] MEDS ORDERED: OXYTOCIN 10 UNIT/ML VIAL IM PRN (15:59)
[2022-07-24] MEDS ORDERED: SODIUM CHLORIDE FLUSH 0.9% 10 ML SYRINGE IVP PRN (15:59)
[2022-07-24] MEDS ORDERED: lidocaine 1% 20 ML MDV ID PRN (15:59)
[2022-07-24] MEDS ORDERED: LACTATED RINGERS 500 ML IV ONE (15:59)
[2022-07-24] MEDS ORDERED: NIFEdipine 10 MG CAPSULE PO PRN (15:59)
[2022-07-24] MEDS ORDERED: AMPICILLIN 2 GM in SODIUM CHLORIDE 0.9% MINIBAG 100 ML IV ONE (15:59)
[2022-07-24] MEDS ORDERED: hydrALAZINE INJ 20 MG/ML VIAL IVP PRN ×2 (15:59)
[2022-07-24] MEDS ORDERED: TERBUTALINE 1 MG/ML VIAL SUBQ PRN (15:59)
[2022-07-24] MEDS ORDERED: LABETALOL 20 MG/4 ML SYRINGE IVP PRN ×3 (15:59)
[2022-07-24 16:25] LABS: BASOPHILS % (AUTO) 0.3 %; EOSINOPHILS # (AUTO) 0.1 10^3/uL (0.0-0.7); EOSINOPHILS % (AUTO) 0.6 %; HCT - HEMATOCRIT 35.2 % (37.0-47.0); HGB - HEMOGLOBIN 12.1 g/dL (12.0-16.0); LYMPHOCYTES # (AUTO) 2.3 10^3/uL (1.5-3.5); MEAN CORPUSCULAR HEMOGLOBIN 30.3 pg (27.0-31.0); MEAN CORPUSCULAR HGB CONC 34.4 g/dL (32.0-36.0); MEAN PLATELET VOLUME 9.9 fL (7.9-10.8); MONOCYTES # (AUTO) 0.7 10^3/uL (0.0-1.0); MONOCYTES % (AUTO) 6.5 %; NEUTROPHILS # (AUTO) 8.3 10^3/uL (1.5-6.6); NEUTROPHILS % (AUTO) 72.3 %; PLT - PLATELET COUNT 302 10^3/uL (130-450); RED CELL DISTRIBUTION WIDTH 12.9 % (12.0-15.0); WHITE BLOOD COUNT 11.4 x10^3/uL (4.8-10.8)
[2022-07-24] MEDS: miSOPROStoL 100 MCG TABLET BC SCH ×2 (16:34→20:33)
[2022-07-24 16:50] LABS: ALBUMIN 3.2 g/dL (3.2-5.5); ALBUMIN/GLOBULIN RATIO 0.9 (1.0-2.2); BILIRUBIN,TOTAL 0.5 mg/dL (0.2-1.0); CALCIUM 9.2 mg/dL (8.5-10.3); CREATININE 0.7 mg/dL (0.4-1.0); POTASSIUM 3.7 mmol/L (3.5-5.0); TOTAL PROTEIN 6.9 g/dL (6.7-8.2)
--- NOTE | 2022-07-24 18:20 | HISTORY & PHYSICAL EXAMINATION ---
Admit History - Visit Reason Visit Reason: Other (IOL, elective) - : 2 Parity: 1 Care: positive: [facility] Risk/History: positive: Labor induction Complications This : positive: None Smoking Status: Former smoker - Mother's Labs Mother's Blood Type: positive: A Mother's RH: positive: Positive GBS: positive: Group B Strep Positive Rubella Status: positive: Immune - Other Maternal History Other Maternal History: Med: Hina's thyroiditis, BMI 45 Surg: Denies Social: , history of drug use, denies current ELYSIA, first child placed for adoption Fam: Noncontributory Meds/Allgy - Home Medications Home Medications: Ambulatory Orders Medication Instructions Recorded Confirmed Control Pills 1 tab PO DAILY 10/16/16 08/26/17 Neomycin/Polymyx/Hc Otic Drops 4 drops OT TID #1 bottle 08/26/17 [Cortisporin Ear Susp] - Allergies Allergies/Adverse Reactions: Allergies Allergy/AdvReac Type Severity Reaction Status Date / Time sumatriptan [From Imitrex] Allergy Unknown Verified 08/26/17 20:15 sumatriptan succinate * Allergy Unknown Verified 08/26/17 20:15 [From Imitrex] Review of Systems - Gastrointestinal Gastrointestinal: reports: Reflux/heartburn - All Other Systems All Other Systems: reports: Reviewed and negative Physical - Abdominal Exam Vital Signs: Temp Pulse Resp BP Pulse Ox O2 Flow Rate 98.1 F 07/24/22 16:35 Contraction Frequency (min/apart): Occasional Contraction Intensity: positive: Mild Uterine Resting Tone: positive: Soft - Monitoring Strip Review: positive: Category I - Presentation Presentation: positive: Vertex (Placenta posterior, EFW 3200g) - Vaginal Exam Membranes: positive: Membranes intact Dilation (in cm): 1 Effacement (%): 50 Station: positive: -3 Cervical Position: positive: Midposition Plan for Labor - Plan For Labor I expect patient to be DC'd or transferred within 96 hours.: Yes Plan for Labor: 32yo at 39.6w by LMP consistent with 10w US admitted for planned elective IOL - Admit - CBC, CMP, TSH, T&S - Misoprostol cervical ripening, then plan for Pitocin - GBS positive, will start ampicillin with Pitocin
[2022-07-24] MEDS ORDERED: AMPICILLIN 1 GM in SODIUM CHLORIDE 0.9% MINIBAG 100 ML IV SCH (20:00)
[2022-07-24] MEDS: SODIUM CHLORIDE FLUSH 0.9% 10 ML SYRINGE IVP SCH (20:41)
[2022-07-24] MEDS ORDERED: ONDANSETRON 4 MG/2 ML VIAL IVP PRN (21:04)
[2022-07-24] MEDS: LACTATED RINGERS 1,000 ML IV SCH (22:58)
[2022-07-24] MEDS: OXYTOCIN/SODIUM CHLORIDE 500 ML IV SCH (22:59)
[2022-07-25] MEDS: miSOPROStoL 100 MCG TABLET BC SCH ×2 (01:01→04:28)
[2022-07-25] MEDS: SODIUM CHLORIDE FLUSH 0.9% 10 ML SYRINGE IVP SCH ×2 (01:01→04:58)
[2022-07-25] MEDS: LACTATED RINGERS 1,000 ML IV SCH ×3 (01:02→12:22)
[2022-07-25] MEDS ORDERED: AMPICILLIN 2 GM in SODIUM CHLORIDE 0.9% MINIBAG 100 ML IV ONE (06:00)
[2022-07-25] MEDS: OXYTOCIN/SODIUM CHLORIDE 500 ML IV SCH (06:54)
--- NOTE | 2022-07-25 08:39 | PROVIDER PROGRESS NOTE ---
Labor Progress Note - Uterine Monitoring Uterine Monitoring Mode: positive: External toco Contraction Frequency (min/apart): 4-7 Contraction Intensity: positive: Moderate to strong Uterine Resting Tone: positive: Soft - Monitoring Monitor Mode: positive: External ultrasound Heart Rate Baseline: 125 Heart Rate Variability: positive: Moderate (6-25 bmp) Accelerations: positive: Present, 15x15 Decelerations: positive: Early Strip Review: positive: Category I - Vaginal Exam Dilation (in cm): 4 Effacement (%): 80 Station: -2 - Labor Progress Note Labor Progress Note/Additional Text: Epidural in place and patient very comfortable. Nitric oxide did not provide adequate pain control. Head is well engaged amniotomy was attempted, but was not able to break water. Will attempt at future check.
--- NOTE | 2022-07-25 08:52 | PROVIDER PROGRESS NOTE ---
Labor Progress Note - Uterine Monitoring Uterine Monitoring Mode: positive: External toco Contraction Frequency (min/apart): 6 Contraction Intensity: positive: Mild to moderate Uterine Resting Tone: positive: Soft - Monitoring Monitor Mode: positive: External ultrasound Heart Rate Baseline: 130 Heart Rate Variability: positive: Moderate (6-25 bmp) Accelerations: positive: Present, 15x15 Decelerations: positive: None Strip Review: positive: Category I - Vaginal Exam Dilation (in cm): 3 Effacement (%): 50 Station: -3 Cervical Position: Midposition - Labor Progress Note Labor Progress Note/Additional Text: 32yo at 40w admitted for elective IOL - S/p misoprostol 50mcg x2 BC - GBS POS, ampcillin x1 given - Pitocin started, at 4mu this am 0800 - Anticipate once in active - May have epidural prn - Cat 1
[2022-07-25] MEDS ORDERED: ROPIVACAINE 0.2% 200 MG/100 ML BAG EP ONE (09:38)
[2022-07-25] MEDS: AMPICILLIN 1 GM in SODIUM CHLORIDE 0.9% MINIBAG 100 ML IV SCH ×2 (10:25→14:38)
[2022-07-25] MEDS ORDERED: ePHEDrine 50 MG/ML VIAL IVP PRN (11:00)
[2022-07-25] MEDS ORDERED: NALOXONE 0.4 MG/ML VIAL IVP PRN (11:00)
[2022-07-25] MEDS ORDERED: METOCLOPRAMIDE 10 MG/2 ML VIAL IVP PRN (11:00)
[2022-07-25] MEDS ORDERED: ONDANSETRON 4 MG/2 ML VIAL IVP PRN ×2 (11:00→15:41)
[2022-07-25] MEDS ORDERED: NALBUPHINE 10 MG/ML AMP IVP PRN (11:00)
[2022-07-25] MEDS ORDERED: diphenhydrAMINE INJ 50 MG/ML VIAL IVP PRN (11:00)
[2022-07-25] MEDS ORDERED: ROPIVACAINE 0.2% 200 MG/100 ML BAG EP PRN (11:00)
--- NOTE | 2022-07-25 11:07 | ANESTHESIA ---
Pre-Anesthesia VS, & Labs - Diagnosis labor induction - Procedure epidural Vital Signs: Temp Pulse Resp BP Pulse Ox O2 Flow Rate 36.7 C 07/24/22 16:35 Height: 5 ft 6 in Weight (kg): 127.913 kg Body Mass Index: 45.5 BMI Classification: Morbidly Obese - NPO Other (clears) - Is Patient ?: Yes - Lab Results Current Lab Results: Laboratory Tests 07/24/22 16:10: Sodium 138, Potassium 3.7, Chloride 108, Carbon Dioxide 22, Anion Gap 8.0, BUN 15, Creatinine 0.7, Estimated GFR (MDRD) 98, Glucose 87, Calcium 9.2, Total Bilirubin 0.5, AST 20, ALT 22, Alkaline Phosphatase 136 H, Total Protein 6.9, Albumin 3.2, Globulin 3.7, Albumin/Globulin Ratio 0.9 L 07/24/22 16:10: TSH 3.06 07/24/22 16:10: WBC 11.4 H, RBC 4.00 L, Hgb 12.1, Hct 35.2 L, MCV 88.0, MCH 30.3, MCHC 34.4, RDW 12.9, Plt Count 302, MPV 9.9, Neut # (Auto) 8.3 H, Lymph # (Auto) 2.3, [place] # (Auto) 0.7, Eos # (Auto) 0.1, Baso # (Auto) 0.0, Absolute Nu cleated RBC 0.00, Nucleated RBC % 0.0 07/24/22 16:10: Blood Type A POSITIVE, Antibody Screen NEGATIVE Fish Bones: 07/24/22 16:10 07/24/22 16:10 Home Medications and Allergies Active Medications Acetaminophen (Acetaminophen 500 Mg Tablet) 1,000 mg PO Q8H PRN PRN Reason: Mild Pain or Fever>38C(100.4F) Carboprost Tromethamine (Carboprost Tromethamine 250 Mcg/Ml Amp) 250 mcg IM .ONCE PRN PRN Reason: Hemorrhage Diphenhydramine HCl (Diphenhydramine Inj 50 Mg/Ml Vial) 12.5 - 25 mg IVP Q6HR PRN PRN Reason: ITCHING Ephedrine Sulfate (Ephedrine 50 Mg/Ml Vial) 5 mg IVP Q5M PRN PRN Reason: For SBP<100;give until SBP>100 Fentanyl (Fentanyl 100 Mcg/2 Ml Vial) 50 mcg IVP Q1H PRN PRN Reason: Severe Pain (score 7-10) Hydralazine HCl (Hydralazine Inj 20 Mg/Ml Vial) 5 - 10 mg IVP Q20M PRN; Protocol PRN Reason: SBP> or= 160 OR DBP> or= 110 Hydralazine HCl (Hydralazine Inj 20 Mg/Ml Vial) 10 mg IVP .ONCE PRN; Protocol PRN Reason: SBP> or= 160 OR DBP> or= 110 Oxytocin/Sodium Chloride (Pitocin/Sodium Chloride) 500 mls @ 999 mls/hr IV PRN PRN; Protocol PRN Reason: POST- HEMORR PREVENTION Tranexamic Acid (Tranexamic 1,000 Mg/100ml-Nacl) 1,000 mg in 100 mls @ 600 mls/hr IV Q30M PRN PRN Reason: EBL >1200mL and within 3hr Lactated Ringer's (Lr) 1,000 mls @ 125 mls/hr IV .Q8H [facility] Last Admin: 07/25/22 05:09 Dose: 125 mls/hr Oxytocin/Sodium Chloride (Pitocin/Sodium Chloride) 500 mls @ 2 mls/hr IV TITR NICANOR; Protocol Last Titration: 07/25/22 07:32 Dose: 4 milliunit/min, 4 mls/hr Ampicillin Sodium 1 gm/ Sodium (Chloride) 100 mls @ 200 mls/hr IV Q4H [facility] Last Admin: 07/25/22 10:25 Dose: 200 mls/hr Ropivacaine (Naropin 0.2%) 200 mg in 100 mls @ 0 mls/hr EP PRN PRN; Protocol PRN Reason: PAIN Labetalol HCl (Labetalol 20 Mg/4 Ml Syringe) 20 - 80 mg IVP Q10M PRN; Protocol PRN Reason: SBP> or= 160 OR DBP> or= 110 Labetalol HCl (Labetalol 20 Mg/4 Ml Syringe) 20 mg IVP .ONCE PRN; Protocol PRN Reason: SBP> or= 160 OR DBP> or= 110 Labetalol HCl (Labetalol 20 Mg/4 Ml Syringe) 20 - 40 mg IVP Q10M PRN; Protocol PRN Reason: SBP> or= 160 OR DBP> or= 110 Lidocaine HCl (Lidocaine 1% 20 Ml Mdv) 20 ml ID .ONCE PRN PRN Reason: PERINEAL REPAIR Stop: 07/27/22 16:01 Methylergonovine Maleate (Methylergonovine 0.2 Mg/Ml Vial) 0.2 mg IM .ONCE PRN PRN Reason: Hemorrhage Metoclopramide HCl (Metoclopramide 10 Mg/2 Ml Vial) 10 mg IVP Q6HR PRN PRN Reason: Nausea / Vomiting Misoprostol (Misoprostol 200 Mcg Tablet) 600 mcg BC .ONCE PRN PRN Reason: Hemorrhage Misoprostol (Misoprostol 200 Mcg Tablet) 800 mcg AL .ONCE PRN PRN Reason: Hemorrhage Misoprostol (Misoprostol 100 Mcg Tablet) 50 mcg BC Q4H [facility] Stop: 07/25/22 12:01 Last Admin: 07/25/22 04:28 Dose: Not Given Nalbuphine HCl (Nalbuphine 10 Mg/Ml Amp) 2.5 - 5 mg IVP Q4H PRN PRN Reason: ITCHING Naloxone HCl (Naloxone 0.4 Mg/Ml Vial) 0.1 mg IVP Q2M PRN PRN Reason: RR<8 Nifedipine (Nifedipine 10 Mg Capsule) 10 - 20 mg PO Q20M PRN; Protocol PRN Reason: SBP> or= 160 OR DBP> or= 110 Ondansetron HCl (Ondansetron 4 Mg/2 Ml Vial) 4 mg IVP Q6H PRN PRN Reason: Nausea / Vomiting Ondansetron HCl (Ondansetron 4 Mg/2 Ml Vial) 4 mg IVP Q6HR PRN PRN Reason: Nausea / Vomiting Oxytocin (Oxytocin 10 Unit/Ml Vial) 10 unit IM .ONCE PRN PRN Reason: Step One if no IV access. Sodium Chloride (Sodium Chloride Flush 0.9% 10 Ml Syringe) 10 ml IVP PRN PRN PRN Reason: NEEDED PER PROVIDER ORDERS Last Admin: 07/24/22 23:01 Dose: 10 ml Sodium Chloride (Sodium Chloride Flush 0.9% 10 Ml Syringe) 10 ml IVP Q8H [facility] Last Admin: 07/25/22 04:58 Dose: 10 ml Terbutaline Sulfate (Terbutaline 1 Mg/Ml Vial) 0.25 mg SUBQ .ONCE PRN PRN Reason: Tachystole Control Pills 1 tab PO DAILY 10/16/16 Allergies/Adverse Reactions: Allergies Allergy/AdvReac Type Severity Reaction Status Date / Time sumatriptan [From Imitrex] Allergy Unknown Verified 08/26/17 20:15 sumatriptan succinate * Allergy Unknown Verified 08/26/17 20:15 [From Imitrex] Anes History & Medical History - Anesthetic History Anesthesia Complications: reports: No previous complications - Medical History Cardiovascular: reports: None Pulmonary: reports: None Gastrointestinal: reports: GERD Smoking Status: Former smoker History of Cancer?: No - Obstetrical History : 2 Parity: 1 Events: reports: Labor induction Complications: reports: None Exam General: Alert, Oriented x3 Dental: WNL Mouth Opening: Greater than 4 Fingerbreadths Neck Mobility: Normal Mallampati classification: II Respiratory: Lungs clear Cardiovascular: Regular rate Plan Anesthesia Type: Epidural Consent for Procedure(s) Verified and Reviewed: Yes Code Status: Attempt Resuscitation ASA classification: 3-Severe systemic disease Is this case an emergency?: No
[2022-07-25] MEDS ORDERED: EPINEPHrine 1 MG/ML AMP ONE (18:34)
[2022-07-25] MEDS ORDERED: fentaNYL 100 MCG/2 ML VIAL ONE (18:51)
[2022-07-25] MEDS ORDERED: MIDAZOLAM 2 MG/2 ML VIAL ONE (18:51)
[2022-07-25] MEDS ORDERED: LIDOCAINE-PF 2% 10 ML AMP SUBQ ONE (18:54)
[2022-07-25] MEDS ORDERED: ceFAZolin 1 GM VIAL ONE (19:04)
[2022-07-25] MEDS ORDERED: ePHEDrine 50 MG/ML VIAL IVP ONE (19:20)
[2022-07-25] MEDS ORDERED: OXYTOCIN 10 UNIT/ML VIAL ONE (19:34)
[2022-07-25] MEDS ORDERED: DEXTROSE 50% ABBOJECT 25 GM/50 ML SYRINGE ONE (19:35)
[2022-07-25] MEDS ORDERED: KETOROLAC 30 MG/ML VIAL ONE (19:58)
[2022-07-25] MEDS ORDERED: ROPIVACAINE 0.5% PF 20 ML VIAL ONE ×2 (20:06→20:20)
[2022-07-25] MEDS ORDERED: SIMETHICONE CHEW 80 MG TABLET PO PRN (20:08)
[2022-07-25] MEDS ORDERED: OXYTOCIN/SODIUM CHLORIDE 500 ML IV PRN (20:08)
[2022-07-25] MEDS ORDERED: SODIUM CHLORIDE FLUSH 0.9% 10 ML SYRINGE IVP PRN (20:08)
[2022-07-25] MEDS ORDERED: ONDANSETRON ODT 4 MG TABLET TL PRN (20:08)
--- NOTE | 2022-07-25 20:08 | OPERATIVE REPORT ---
Operative Report - General Admit Date: 07/24/22 Planned Procedure: Low-transverse section Pre-Op Diagnosis: Suspected uterine rupture Procedure Performed: Low-transverse section Post Op Diagnosis: Uterine rupture, status post low-transverse section - Procedure Note Primary Surgeon: Bishnu Holt MD Secondary Surgeon: JAX Rodrigues Anesthesia Provider: Evy Larios CRNA Anesthesia Technique: Epidural Pathology: Placenta IV Fluids (mL): 1,300 Estimated Blood Loss (mL): 1,000 Urine Output (mL): 100 Complications: None - Other Other Information/Narrative: Preoperative diagnoses 40 weeks gestation Obesity Suspected uterine rupture Postoperative diagnoses Same Status post low-transverse section Delivery of live cobos Uterine rupture hemorrhage Patient was admitted at 39 weeks 6 days gestation for induction of labor. She received misoprostol followed by oxytocin. She had spontaneous rupture membranes. She used nitrous oxide and then subsequently received an epidural for pain control. Stage I of labor was relatively uncomplicated with currently category 1 tracing. She had occasional variable deceleration and frequent early decelerations. Category 2 involved pushing for over an hour. She had intermittent vomiting while pushing and received Zofran which alleviated symptoms. Patient began to get tired and was counseled on vacuum-assisted vaginal delivery. She then began complaining of shoulder pain. She agreed to vacuum delivery, and the pediatric provider was called. The vacuum was placed on the head. However, patient's contractions stopped before suction was applied. We then began having difficulties tracing heart tones and these appear to be in the 90s for several minutes. We tried repositioning without success. Decision was made to proceed to the OR for urgent section for suspected uterine rupture. section was recommended. We briefly discussed the risks and benefits of section, and verbal consent was obtained. She had previously consented to blood transfusion. The patient stated understanding and desired to proceed. All questions were answered posed by patient. The OR team was called in. She underwent a section prepped with a Betadine scrub. She was draped and tested found to have adequate regional anesthesia. She did receive 3 g cefazolin mid operation. Nunez catheter was placed to mid operation. Due to concern for likely maternal decompensation, surgery was starter prior to the arrival of an anesthesia provider. A pfannenstiel skin incision was then made with the scalpel and carried through to the underlying layer of fascia. The fascia was incised in the midline and extended bluntly. The muscles were bluntly midline and the peritoneum was entered bluntly. At that point the abdomen was explored and the fetus was completely within the abdominal cavity and was in the cephalic position, it was guided out of the Pfannenstiel incision with abdominal pressure. A brief assessment noted no spontaneous breathing and the cord was clamped and cut. The was handed off to the pediatric team. At that point, the placenta was removed, also from the abdomen. There appeared to be a complete detachment. The uterus was then exteriorized and the bladder blade was inserted. The uterus was cleared of all clots and debris. A hole in the uterus was noted with an extension to the broad ligament to the patient's right. This was closed in 2 layers of 0 Vicryl. An [place] retractor was then requested and placed in the abdomen ensuring no abdominal contents were trapped. The extension was explored and found to be bleeding deeper near the uterine artery, so an [place] stitch was used. The peritoneal edge was oozing and due to the proximity to the uterine vein, pressure was held and appeared hemostatic. Surgicel was placed over the wound. Upon inspection, the repaired hysterotomy was found to be hemostatic. The uterus was firm and returned to the abdomen. The gutters were cleared of all clots and debris. An area of muscle that was transected was attempted to be pulled together using 2 Allis clamps, but the tension was great and would tear through, so the closure was abandoned. The fascia was reapproximated with 0 Vicryl in a running fashion. The subcutaneous tissue was closed with 2-0 Vicryl. The skin was closed in a subcuticular fashion with 3-0 Monocryl. The patient tolerated the procedure well. Presurgical counseling performed, so an abdominal x-ray was obtained and showed no retained surgical items. She received a tap block for additional pain control. The patient was taken to the recovery room in stable condition. I appreciate the assistance of JAX Rodrigues during this procedure, and the assistance in retraction, visualization, dissection, and overall assistance during the case were instrumental to the patient's wellbeing.
[2022-07-25] MEDS ORDERED: DEXAMETHASONE 4 MG/ML VIAL ONE (20:21)
[2022-07-25] MEDS ORDERED: LACTATED RINGERS 1,000 ML IV ONE (20:45)
[2022-07-25] MEDS ORDERED: LACTATED RINGERS 1,000 ML IV SCH (21:00)
[2022-07-25] MEDS ORDERED: AZITHROMYCIN INJ 500 MG in SODIUM CHLORIDE 0.9% 250 ML IV SCH (22:00)
--- NOTE | 2022-07-25 22:25 | XRAY Report ---
PROCEDURE: Abdomen 1 View X-Ray INDICATIONS: Surgical count not performed TECHNIQUE: 3 intraoperative views of the abdomen acquired. COMPARISON: None. FINDINGS: No radiopaque foreign bodies identified within the visualized abdomen. IMPRESSION: 1. Limited study demonstrates no radiopaque foreign bodies within the visualized abdomen. Reviewed by: Festus Banuelos MD on 07/25/2022 10:24 PM PDT Approved by: Festus Banuelos MD on 07/25/2022 10:24 PM PDT Station ID: [id number]
[2022-07-25] MEDS: cephALEXin 250 MG CAPSULE PO SCH (22:29)
[2022-07-25] MEDS: metroNIDAZOLE 250 MG TABLET PO SCH (22:29)
[2022-07-25] MEDS: oxyCODONE 5 MG TABLET PO PRN (22:57)
[2022-07-26] MEDS ORDERED: SODIUM CHLORIDE FLUSH 0.9% 10 ML SYRINGE IVP SCH (01:00)
[2022-07-26 01:06] LABS: HCT - HEMATOCRIT 34.8 % (37.0-47.0); HGB - HEMOGLOBIN 11.9 g/dL (12.0-16.0)
[2022-07-26] MEDS: KETOROLAC 30 MG/ML VIAL IVP SCH ×3 (02:06→14:35)
[2022-07-26] MEDS: ACETAMINOPHEN 500 MG TABLET PO SCH ×3 (03:07→20:17)
[2022-07-26 05:26] LABS: BASOPHILS # (AUTO) 0.1 10^3/uL (0.0-0.1); BASOPHILS % (AUTO) 0.3 %; HGB - HEMOGLOBIN 11.7 g/dL (12.0-16.0); LYMPHOCYTES # (AUTO) 0.7 10^3/uL (1.5-3.5); LYMPHOCYTES % (AUTO) 3.8 %; MEAN CORPUSCULAR HEMOGLOBIN 30.5 pg (27.0-31.0); MEAN CORPUSCULAR HGB CONC 34.4 g/dL (32.0-36.0); MEAN CORPUSCULAR VOLUME 88.8 fL (81.0-99.0); MEAN PLATELET VOLUME 9.5 fL (7.9-10.8); NEUTROPHILS # (AUTO) 17.6 10^3/uL (1.5-6.6); NEUTROPHILS % (AUTO) 90.5 %; PLT - PLATELET COUNT 248 10^3/uL (130-450); RED BLOOD COUNT 3.83 10^6/uL (4.20-5.40); RED CELL DISTRIBUTION WIDTH 13.3 % (12.0-15.0); WHITE BLOOD COUNT 19.4 x10^3/uL (4.8-10.8)
[2022-07-26] MEDS: cephALEXin 250 MG CAPSULE PO SCH ×3 (05:57→22:56)
[2022-07-26] MEDS: metroNIDAZOLE 250 MG TABLET PO SCH ×3 (08:08→16:22)
--- NOTE | 2022-07-26 08:18 | PROVIDER PROGRESS NOTE ---
Subjective - Subjective Subjective: Subjective Patient reports she is doing well. Lochia appropriate. Denies heavy bleeding. Ambulating without difficulty. Pelvic and abdominal pain well-controlled. Tolerating oral intake. Diet: Regular. Catheter removed this a.m., but has not voided yet. Passing flatus. Denies BM. Denies feeling lightheaded, dizzy or excessively fatigued. Objective General: Alert, oriented, no apparent distress. Cardiovascular: Regular rate. Regular rhythm. Lungs: No increased work of breathing. Abdomen: Uterus firm. Below umbilicus. No guarding or rebound. Extremities: No pain on palpation. No cords palpated. Distal pulses intact. Incision: Bandage in place. Assessment and Plan day 1. -Routine care -Anticipate discharge tomorrow hemorrhage -Hemodynamically stable. H&H stable. Uterine rupture -Discussed implications for future . -Due to the extension rupture, will get CT IVP to assess ureter. Objective - Vital Signs/Intake & Output Vital Signs: Vital Signs x48h Temp Pulse Resp BP Pulse Ox 07/26/22 06:00 97.8 F 84 19 142/77 H 99 07/26/22 02:00 98.1 F 88 18 142/71 H 99 07/26/22 01:00 98.4 F 96 18 143/84 H 99 Intake & Output: Intake & Output 07/23/22 07/24/22 07/25/22 07/26/22 23:59 23:59 23:59 23:59 Intake Total 1931.350 100 Output Total 1 226 1700 Balance -1 1705.350 -1600 - Lab Results Fish Bones: 07/26/22 05:12 07/24/22 16:10 Other Labs: Lab Results x24hrs 07/26/22 07/26/22 Range/Units 05:12 01:01 WBC 19.4 H (4.8-10.8) x10^3/uL RBC 3.83 L (4.20-5.40) 10^6/uL Hgb 11.7 L 11.9 L (12.0-16.0) g/dL Hct 34.0 L 34.8 L (37.0-47.0) % MCV 88.8 (81.0-99.0) fL MCH 30.5 (27.0-31.0) pg MCHC 34.4 (32.0-36.0) g/dL RDW 13.3 (12.0-15.0) % Plt Count 248 (130-450) 10^3/uL MPV 9.5 (7.9-10.8) fL Neut # (Auto) 17.6 H (1.5-6.6) 10^3/uL Lymph # (Auto) 0.7 L (1.5-3.5) 10^3/uL [place] # (Auto) 1.0 (0.0-1.0) 10^3/uL Eos # (Auto) 0.0 (0.0-0.7) 10^3/uL Baso # (Auto) 0.1 (0.0-0.1) 10^3/uL Absolute Nucleated RBC 0.00 x10^3/uL Nucleated RBC % 0.0 /100WBC
--- NOTE | 2022-07-26 10:48 | ANESTHESIA POST OP EVALUATION ---
Anesthesia Post Eval - Post Anesthesia Eval Vitals: Last Vital Signs Temp 36.6 C 07/26/22 06:00 Pulse 84 07/26/22 06:00 Resp 19 07/26/22 06:00 BP 142/77 H 07/26/22 06:00 Pulse Ox 99 07/26/22 06:00 O2 Flow Rate CV Function Including HR & BP: Stable Pain Control: Satisfactory Nausea & Vomiting: Negative Mental Status: Baseline Respiratory Status: Airway Patent Hydration Status: Satisfactory Anesthesia Complications: None
[2022-07-26] MEDS ORDERED: iohexoL-300 100 ML VIAL ONE (11:13)
[2022-07-26] MEDS ORDERED: iohexoL-300 100 ML VIAL IVP ONE (11:38)
--- NOTE | 2022-07-26 12:13 | CT Report ---
PROCEDURE: IVP INDICATIONS: Uterine rupture with extension near the ureter. CONTRAST: 140ml Omnipaque 300 TECHNIQUE: After the administration of intravenous contrast, 5 mm thick sections acquired from the diaphragms to the symphysis. 5 mm thick coronal and sagittal reformats were acquired. For radiation dose reducti on, the following was used: automated exposure control, adjustment of mA and/or kV according to dorene ent size. COMPARISON: None FINDINGS: Image quality: Good Lower chest: Scattered scarring and atelectasis at the lung bases. Normal heart size. Patulous distal esophagus, nonspecific appearance. Solid organs: The liver is unremarkable. Gallbladder is unremarkable. No pathologic dilation of the b iliary tree or pancreatic duct. Borderline splenomegaly at about 14 cm. No adrenal nodules. No hydronephrosis. On delayed phase imaging, no discrete urinary extravasation is noted. Moderate deg ree of fat stranding and edema around the post gravid uterus, described further below. No radiopaque stones. Vessels and lymph nodes: No abdominal aortic aneurysm. There are prominent lymph nodes that may be re active in this clinical setting in the pelvis and retroperitoneum. The main portal vein is probably p atent, although contrast opacification is suboptimal for evaluation. Bowel and peritoneum: No evidence of bowel obstruction. Pelvic findings described below. There are postsurgical changes with small pneumoperitoneum. Body wall: Anterior abdominal wall postsurgical changes, gas, and edema. Pelvis: Post gravid uterus. Moderate degree of edema fat stranding in the periuterine and periadnexal regions. A small pocket of air and fluid is seen to the right of the uterus that seems separate from bowel (6/70). Edema and inflammation is most confluent near this region. Small amount of air in the bladder is likely due to catheterization, correlate clinically. Bones: No acute or suspicious osseous finding. Small sclerotic lesions may represent bone islands. IMPRESSION: No evidence of extravasation from the collecting system on delayed images to suggest urinary leakage. Post gravid uterus. Moderate degree of edema and fat stranding around the pelvis with air. Small pock et to the right of the uterus, with surrounding edema that is more confluent, likely postsurgical grace nges and sequelae of reported uterine rupture. Consider sonographic or CT imaging follow-up if clinic ally necessary. Other nonacute and incidental findings are described above. Reviewed by: Dimitrios Suggs MD on 07/26/2022 12:11 PM PDT Approved by: Dimitrios Suggs MD on 07/26/2022 12:11 PM PDT Station ID: [id number]
[2022-07-26] MEDS: DOCUSATE SODIUM 100 MG CAPSULE PO SCH (16:15)
[2022-07-26] MEDS: IBUPROFEN 600 MG TABLET PO SCH (20:17)
[2022-07-26] MEDS: oxyCODONE 5 MG TABLET PO PRN (23:31)
[2022-07-27] MEDS: IBUPROFEN 600 MG TABLET PO SCH ×2 (03:03→09:27)
[2022-07-27] MEDS: ACETAMINOPHEN 500 MG TABLET PO SCH (04:00)
[2022-07-27 06:17] LABS: BASOPHILS % (AUTO) 0.2 %; EOSINOPHILS # (AUTO) 0.1 10^3/uL (0.0-0.7); EOSINOPHILS % (AUTO) 0.6 %; HCT - HEMATOCRIT 31.2 % (37.0-47.0); HGB - HEMOGLOBIN 10.6 g/dL (12.0-16.0); LYMPHOCYTES # (AUTO) 1.4 10^3/uL (1.5-3.5); LYMPHOCYTES % (AUTO) 9.6 %; MEAN CORPUSCULAR HEMOGLOBIN 30.5 pg (27.0-31.0); MEAN CORPUSCULAR VOLUME 89.7 fL (81.0-99.0); MONOCYTES # (AUTO) 0.7 10^3/uL (0.0-1.0); MONOCYTES % (AUTO) 4.6 %; NEUTROPHILS # (AUTO) 11.9 10^3/uL (1.5-6.6); NEUTROPHILS % (AUTO) 84.6 %; PLT - PLATELET COUNT 220 10^3/uL (130-450); RED BLOOD COUNT 3.48 10^6/uL (4.20-5.40); RED CELL DISTRIBUTION WIDTH 13.5 % (12.0-15.0); WHITE BLOOD COUNT 14.1 x10^3/uL (4.8-10.8)
[2022-07-27 06:29] LABS: ALBUMIN 2.5 g/dL (3.2-5.5); ALBUMIN/GLOBULIN RATIO 0.7 (1.0-2.2); BILIRUBIN,TOTAL 0.7 mg/dL (0.2-1.0); CALCIUM 8.4 mg/dL (8.5-10.3); CREATININE 0.6 mg/dL (0.4-1.0); POTASSIUM 3.7 mmol/L (3.5-5.0); TOTAL PROTEIN 5.9 g/dL (6.7-8.2)
[2022-07-27] MEDS: cephALEXin 250 MG CAPSULE PO SCH (06:52)
[2022-07-27] MEDS: metroNIDAZOLE 250 MG TABLET PO SCH ×2 (07:35→07:50)
--- NOTE | 2022-07-27 07:55 | Discharge Plan ---
Discharge Plan Problem Reviewed?: Yes Disposition: Home, Self Care Condition: Good Activity Restrictions: Additional Comments Instruction Topics: C Section Dc, Depression No Smoking: If you smoke, Please STOP! Call for help. Follow-up with: Giuliana Hughes ARNP [Primary Care Provider] - Bishnu Holt MD [Provider Admit Priv/Credential] -
--- NOTE | 2022-07-27 07:56 | DISCHARGE SUMMARY ---
"Discharge Summary Admit Date: 07/24/22 Discharge Date: 07/27/22 Discharging Provider: Bishnu barksdale MD Code Status: Attempt Resuscitation Condition at Discharge: Good Discharge Disposition: 01 Home, Self Care - DIAGNOSES Admission Diagnoses: 39 weeks gestation Morbid obesity History of Hina's thyroiditis GBS positive Discharge Diagnoses with Status of Each Condition: 39 weeks gestation Morbid obesity History of Hina's thyroiditis GBS positive Status post primary low-transverse section Uterine rupture hemorrhage - HPI History of Present Illness: Subjective Patient reports she is doing well. Lochia appropriate. Denies heavy bleeding. Ambulating. Pelvic and abdominal pain well-controlled. Tolerating oral intake. Diet: Regular. Voiding without difficulty. Passing flatus, Small BM. Denies feeling lightheaded, dizzy or excessively fatigued. Objective General: Alert, oriented, no apparent distress. Cardiovascular: Regular rate. Regular rhythm. Lungs: No increased work of breathing. Abdomen: Uterus firm. Below umbilicus. No guarding or rebound. Extremities: No pain on palpation. No cords palpated. Distal pulses intact. Incision: Clean, dry, and intact. - CONSULTS | PROCEDURES Consultations: Anesthesia Procedures: Primary low-transverse section, repair of uterine rupture - HOSPITAL COURSE Hospital Course: Patient was admitted for induction of labor at 39 weeks gestation. She received misoprostol for cervical ripening followed by oxytocin. She progressed to complete and began pushing. Pushing, she initially made progress, after a little over an hour, she progressed to +2 station and began to complain getting tired not being able to push as well as shoulder pain. She was counseled on vacuum-assisted vaginal delivery and patient consented. Vacuum was placed on the head, but contractions stopped. She then had a period of bradycardia followed by loss of heart tones. We attempted to reposition mother, but heart tones were not able to be found, so we proceeded with emergent section. At time of delivery, uterine rupture was noted and fetus had delivered into the abdomen. After delivery of the , the pediatrics team resuscitated the . After stabilization, he was transferred to [facility] for further management. After delivery of the and placenta, uterus was inspected and had an extension from the lower uterine segment down to the right broad ligament. This was repaired in several layers. The right broad ligament appeared edematous, but not bleeding. Patient was hemostatic after repair. She did have a hemorrhage, but bleeding was not as significant as expected. She was vitally and hemodynamically stable throughout surgery and her course. Due to the extension and proximity to the ureter, a CT IVP was ordered. No extravasation of dye was noted into the abdomen. She was feeling well on day 2 and wanted to be discharged to go to the NICU. Due to her good recovery, she was discharged in good condition. Plan to repeat imaging in 1 week for hydronephrosis. - ALLERGIES Allergies/Adverse Reactions: Allergies Allergy/AdvReac Type Severity Reaction Status Date / Time sumatriptan [From Imitrex] Allergy Unknown Verified 08/26/17 20:15 sumatriptan succinate * Allergy Unknown Verified 08/26/17 20:15 [From Imitrex] - MEDICATIONS Home Medications: Ambulatory Orders Medication Instructions Recorded Confirmed Control Pills 1 tab PO DAILY 10/16/16 08/26/17 Neomycin/Polymyx/Hc Otic Drops 4 drops OT TID #1 bottle 08/26/17 [Cortisporin Ear Susp] Acetaminophen [Acetaminophen Extra 1,000 mg PO Q8H PRN #60 tablet 07/27/22 Strength] Ibuprofen [Motrin] 600 mg PO Q6H PRN #30 tab 07/27/22 oxyCODONE [Roxicodone] 5 mg PO Q4H PRN #20 tablet 07/27/22 - LABS Result Diagrams: 07/27/22 06:07 07/27/22 06:07 - TIME SPENT Time Spent in Discharge (Minutes): 30"
[2022-07-27 09:12] VITALS: BP 132/78
[2022-07-27] MEDS: DOCUSATE SODIUM 100 MG CAPSULE PO SCH (09:27)
== END 2022-07-27 10:30 | disposition home or self-care (01) | DRG 788 ==
LOC: WFO 15:51 → FBP 15:52 → WFO 16:25 → FBP 17:11
PROVIDERS: ADMIT Obstetrics & Gynecology; ATTEND Obstetrics & Gynecology
PROC: 3E0DXGC Introduction of Other Therapeutic Substance into Mouth and Pharynx, External Approach (ICD-10-PCS; 2022-07-24)
PROC: 0UQ90ZZ Repair Uterus, Open Approach (ICD-10-PCS; 2022-07-25)
PROC: 3E033VJ Introduction of Other Hormone into Peripheral Vein, Percutaneous Approach (ICD-10-PCS; 2022-07-25)
PROC: 10D00Z1 Extraction of Products of Conception, Low, Open Approach (ICD-10-PCS; principal; 2022-07-25 18:15)
DX: O99.284 Endocrine, nutritional and metabolic diseases complicating childbirth (principal); Z37.0 Single live birth; E06.3 Autoimmune thyroiditis; O71.1 Rupture of uterus during labor; O72.1 Other immediate postpartum hemorrhage; O99.824 Streptococcus B carrier state complicating childbirth; O99.214 Obesity complicating childbirth; E66.01 Morbid (severe) obesity due to excess calories; Z3A.39 39 weeks gestation of pregnancy; O99.892 Other specified diseases and conditions complicating childbirth; R00.1 Bradycardia, unspecified; O77.8 Labor and delivery complicated by other evidence of fetal stress; Z87.891 Personal history of nicotine dependence
CPT/HCPCS: 36415; 74018; 74178; 80053; 84443; 85014; 85018; 85025; 86850; 86900; 86901; A9270; J2795; J7120; Q9967

== ENCOUNTER 2022-08-18 15:57 | Outpatient (CLI) | payer OTHER ==
--- NOTE | 2022-08-18 19:53 | Ultrasound Report ---
PROCEDURE: Retroperitoneal INDICATIONS: UTERINE RUPTURE TECHNIQUE: Real-time scanning was performed of the retroperitoneal organs, with image documentation. COMPARISON: CT 07/26/2022 FINDINGS: Kidneys: Right kidney is normal in size. Right kidney measures 12.0 cm long. Right renal cortical t hickness is 1.5 cm. No solid masses, hydronephrosis, or nephrolithiasis. Bladder: Bladder volumes not measured. Pre-void images demonstrate no intraluminal masses or stones. On pre-void images, right ureteral jets are noted with color Doppler interrogation. (Of note, urete ral jets may not be detectable in up to 25% of cases due to insufficient differences in specific grav ity between ureteral and bladder urine). Miscellaneous: No free abdominal fluid. IMPRESSION: No right hydronephrosis. Reviewed by: Francisco Javier Lee MD on 08/18/2022 7:52 PM PDT Approved by: Francisco Javier Lee MD on 08/18/2022 7:52 PM PDT Station ID: [id number]
== END 2022-08-18 15:58 | disposition home or self-care (01) ==
LOC: DI 15:57
PROVIDERS: ATTEND Obstetrics & Gynecology
DX: O71.1 Rupture of uterus during labor (principal); Z3A.00 Weeks of gestation of pregnancy not specified

== ENCOUNTER 2022-10-28 08:42 | Outpatient (CLI) | payer OTHER ==
[2022-10-28 08:57] LABS: BASOPHILS # (AUTO) 0.1 10^3/uL (0.0-0.1); BASOPHILS % (AUTO) 0.9 %; EOSINOPHILS # (AUTO) 0.1 10^3/uL (0.0-0.7); EOSINOPHILS % (AUTO) 1.4 %; HCT - HEMATOCRIT 38.5 % (37.0-47.0); HGB - HEMOGLOBIN 12.9 g/dL (12.0-16.0); LYMPHOCYTES # (AUTO) 1.9 10^3/uL (1.5-3.5); LYMPHOCYTES % (AUTO) 33.8 %; MEAN CORPUSCULAR HEMOGLOBIN 30.1 pg (27.0-31.0); MEAN CORPUSCULAR HGB CONC 33.5 g/dL (32.0-36.0); MEAN CORPUSCULAR VOLUME 89.7 fL (81.0-99.0); MEAN PLATELET VOLUME 9.1 fL (7.9-10.8); MONOCYTES # (AUTO) 0.5 10^3/uL (0.0-1.0); MONOCYTES % (AUTO) 8.7 %; PLT - PLATELET COUNT 343 10^3/uL (130-450); RED BLOOD COUNT 4.29 10^6/uL (4.20-5.40); RED CELL DISTRIBUTION WIDTH 13.2 % (12.0-15.0); WHITE BLOOD COUNT 5.5 x10^3/uL (4.8-10.8)
[2022-10-28 09:15] LABS: ALBUMIN 4.7 g/dL (3.2-5.5); ALBUMIN/GLOBULIN RATIO 1.7 (1.0-2.2); BILIRUBIN,TOTAL 0.7 mg/dL (0.2-1.0); CALCIUM 9.8 mg/dL (8.5-10.3); CREATININE 0.8 mg/dL (0.6-1.3); POTASSIUM 4.1 mmol/L (3.5-4.5); TOTAL PROTEIN 7.5 g/dL (6.4-8.9)
[2022-10-28 09:23] LABS: THYROID STIMULATING HORMONE 1.77 uIU/mL (0.34-5.60)
[2022-10-28 09:35] LABS: ESTIMATED AVERAGE GLUCOSE 91 mg/dL (70-100); HEMOGLOBIN A1c% 4.8 % (4.27-6.07)
== END 2022-10-28 08:43 | disposition home or self-care (01) ==
LOC: LAB 08:42
PROVIDERS: ATTEND Nurse Practitioner
DX: D64.9 Anemia, unspecified (principal); E06.3 Autoimmune thyroiditis
CPT/HCPCS: 36415; 80053; 82607; 82728; 83036; 83540; 84439; 84443; 84466; 85025

== ENCOUNTER 2023-07-22 08:03 | Outpatient (CLI) | payer OTHER ==
[2023-07-22 08:30] LABS: BASOPHILS % (AUTO) 0.5 %; EOSINOPHILS # (AUTO) 0.1 10^3/uL (0.0-0.7); EOSINOPHILS % (AUTO) 1.8 %; HCT - HEMATOCRIT 36.8 % (37.0-47.0); HGB - HEMOGLOBIN 12.3 g/dL (12.0-16.0); LYMPHOCYTES # (AUTO) 1.6 10^3/uL (1.5-3.5); LYMPHOCYTES % (AUTO) 29.3 %; MEAN CORPUSCULAR HEMOGLOBIN 30.2 pg (27.0-31.0); MEAN CORPUSCULAR HGB CONC 33.4 g/dL (32.0-36.0); MEAN CORPUSCULAR VOLUME 90.4 fL (81.0-99.0); MEAN PLATELET VOLUME 8.7 fL (7.9-10.8); MONOCYTES # (AUTO) 0.4 10^3/uL (0.0-1.0); MONOCYTES % (AUTO) 7.2 %; NEUTROPHILS # (AUTO) 3.4 10^3/uL (1.5-6.6); PLT - PLATELET COUNT 265 10^3/uL (130-450); RED BLOOD COUNT 4.07 10^6/uL (4.20-5.40); RED CELL DISTRIBUTION WIDTH 12.5 % (12.0-15.0); WHITE BLOOD COUNT 5.6 x10^3/uL (4.8-10.8)
[2023-07-22 09:04] LABS: THYROID STIMULATING HORMONE 2.36 uIU/mL (0.34-5.60)
[2023-07-22 09:09] LABS: ALBUMIN 4.3 g/dL (3.2-5.5); ALBUMIN/GLOBULIN RATIO 1.5 (1.0-2.2); BILIRUBIN,TOTAL 0.6 mg/dL (0.2-1.0); CALCIUM 9.5 mg/dL (8.5-10.3); CREATININE 0.7 mg/dL (0.6-1.3); POTASSIUM 3.7 mmol/L (3.5-4.5); TOTAL PROTEIN 7.1 g/dL (6.4-8.9)
== END 2023-07-22 08:04 | disposition home or self-care (01) ==
LOC: LAB 08:03
PROVIDERS: ATTEND Nurse Practitioner
DX: F10.20 Alcohol dependence, uncomplicated (principal); R53.83 Other fatigue; D64.9 Anemia, unspecified
CPT/HCPCS: 36415; 80053; 82746; 82977; 84425; 84443; 85025